=== PATIENT | female | born 1935 | race Caucasian/White ===

== ENCOUNTER 2018-05-31 23:56 | Inpatient (IN) | payer MEDICARE ==
[~2018-05-31] VITALS: Ht 160 cm; Wt 63.9 kg
[~2018-05-31 23:56] MED LIST: AMLO5TAB7 PO; ATEN25TA PO; BACL20TA PO; FENO145T32 PO; LEVO137T3 PO; LISI-170 PO; LOVA10TA PO; PRED5POW3 PO
[2018-06-01 00:32] LABS: BASOPHILS # (AUTO) 0.02 x10^3/uL (0-0.1); BASOPHILS % (AUTO) 0 % (0-1); EOSINOPHILS # (AUTO) 0.12 x10^3/uL (0-0.4); EOSINOPHILS % (AUTO) 1 % (1-7); LYMPHOCYTES # (AUTO) 1.72 x10^3/uL (1-3.4); LYMPHOCYTES % (AUTO) 18 % (22-44); MD NO; MEAN CORPUSCULAR HEMOGLOBIN 30.5 pg (27.0-34.8); MEAN CORPUSCULAR HGB CONC 33.7 g/dL (32.4-35.8); MEAN CORPUSCULAR VOLUME 90.3 fL (80-100); MEAN PLATELET VOLUME 8.1 fL (7.4-10.4); MONOCYTES # (AUTO) 0.59 x10^3/uL (0.2-0.8); MONOCYTES % (AUTO) 6 % (2-9); NEUTROPHILS # (AUTO) 6.97 x10^3/uL (1.8-6.8); NEUTROPHILS % (AUTO) 74 % (42-75); PLATELET COUNT 311 x10^3/uL (130-400); RED BLOOD COUNT 4.72 x10^6/uL (3.82-5.3)
[2018-06-01 00:45] LABS: ALANINE AMINOTRANSFERASE 23 U/L (12-78); ALBUMIN 3.4 g/dL (3.4-5.0); ANION GAP 10 mmol/L (5-15); CALCIUM 8.6 mg/dL (8.5-10.1); CHLORIDE 103 mmol/L (98-107); CREATININE 1.43 mg/dL (0.55-1.02)
[2018-06-01 00:49] LABS: ALKALINE PHOSPHATASE 130 U/L (45-117); BILIRUBIN,TOTAL 0.2 mg/dL (0.2-1.0); TOTAL PROTEIN 7.2 g/dL (6.4-8.2); TROPONIN I 0.044 ng/mL (0.000-0.045)
[2018-06-01 01:21] LABS: CULTURE INDICATED? YES; MICROSCOPIC INDICATED
[2018-06-01] MEDS: CEFTRIAXONE 1,000 MG in SODIUM CHLORIDE 0.9% 50 ML IVPB ONE ×2 (01:43→02:00)
[2018-06-01] MEDS ORDERED: ACYCLOVIR IV SCH (02:00)
[2018-06-01] MEDS ORDERED: AMPICILLIN 2 GM in SODIUM CHLORIDE 0.9% 100 ML IV SCH (02:00)
[2018-06-01] MEDS ORDERED: VANCOMYCIN PER PHARMACY MC PRN (02:00)
[2018-06-01] MEDS ORDERED: VANCOMYCIN 1,300 MG in SODIUM CHLORIDE 0.9% 250 ML IV ONE (02:00)
[2018-06-01] MEDS ORDERED: VANCOMYCIN 1,400 MG in SODIUM CHLORIDE 0.9% 250 ML IV ONE (02:00)
[2018-06-01] MEDS ORDERED: SODIUM CHLORIDE 0.9% IV SCH (02:00)
[2018-06-01 02:38] LABS: GLUCOSE, CSF 71 mg/dL (40-80); TOTAL PROTEIN,CSF 37 mg/dL (15-45)
[2018-06-01 04:00] VITALS: BP 153/71
[2018-06-01] MEDS: SODIUM CHLORIDE 0.9% 1,000 ML IV SCH ×2 (05:40→22:53)
[2018-06-01] MEDS ORDERED: ACETAMINOPHEN 500 MG TABLET PO PRN (06:00)
[2018-06-01] MEDS ORDERED: DOCUSATE 100 MG CAPSULE PO PRN (06:00)
[2018-06-01] MEDS ORDERED: ONDANSETRON ODT 4 MG PO PRN (06:00)
[2018-06-01] MEDS ORDERED: hydrALAzine 20 MG/ML, 1ML IVPush PRN (06:00)
[2018-06-01] MEDS ORDERED: POLYETHYLENE GLYCOL 17 GM PACKET PO PRN (06:00)
[2018-06-01] MEDS ORDERED: ONDANSETRON 2MG/ML, 2ML IVPush PRN (06:00)
[2018-06-01] MEDS: BUTALB/APAP/CAFFEINE 50MG/325MG/40MG PO PRN ×3 (06:07→20:55)
[2018-06-01 08:13] VITALS: BP 116/57
[2018-06-01] MEDS: LEVOTHYROXINE 137 MCG TABLET PO SCH (09:00)
[2018-06-01] MEDS: FENOFIBRATE 145 MG TABLET PO SCH (10:30)
[2018-06-01] MEDS: AMLODIPINE 5 MG TABLET PO SCH (10:30)
[2018-06-01] MEDS: LEVETIRACETAM 500 MG in SODIUM CHLORIDE 0.9% 100 ML IV SCH ×2 (10:30→22:54)
[2018-06-01] MEDS ORDERED: GADOBUTROL 7.5 MMOL/7.5 ML PFS ONE (12:03)
[2018-06-01 12:28] VITALS: BP 122/53
[2018-06-01] MEDS: ACYCLOVIR IV SCH (15:00)
[2018-06-01] MEDS: SODIUM CHLORIDE 0.9% IV SCH (15:00)
[2018-06-01 19:06] VITALS: BP 104/58
[2018-06-01] MEDS: LOVASTATIN 10 MG TABLET PO SCH (20:55)
[2018-06-02 00:47] VITALS: BP 111/51
[2018-06-02] MEDS ORDERED: CEFTRIAXONE PMX 1GM/50ML 50 ML IV SCH (02:00)
[2018-06-02] MEDS: SODIUM CHLORIDE 0.9% IV SCH (03:30)
[2018-06-02] MEDS: ACYCLOVIR IV SCH (03:30)
[2018-06-02] MEDS: ASPIRIN 81 MG TABLET EC PO SCH (05:31)
[2018-06-02 05:55] LABS: BASOPHILS # (AUTO) 0.04 x10^3/uL (0-0.1); BASOPHILS % (AUTO) 0 % (0-1); EOSINOPHILS # (AUTO) 0.09 x10^3/uL (0-0.4); EOSINOPHILS % (AUTO) 1 % (1-7); LYMPHOCYTES # (AUTO) 2.62 x10^3/uL (1-3.4); LYMPHOCYTES % (AUTO) 32 % (22-44); MD NO; MEAN CORPUSCULAR HEMOGLOBIN 30.5 pg (27.0-34.8); MEAN CORPUSCULAR HGB CONC 33.6 g/dL (32.4-35.8); MEAN CORPUSCULAR VOLUME 90.9 fL (80-100); MEAN PLATELET VOLUME 8.6 fL (7.4-10.4); MONOCYTES # (AUTO) 0.61 x10^3/uL (0.2-0.8); MONOCYTES % (AUTO) 8 % (2-9); NEUTROPHILS # (AUTO) 4.81 x10^3/uL (1.8-6.8); NEUTROPHILS % (AUTO) 59 % (42-75); PLATELET COUNT 255 x10^3/uL (130-400); RED BLOOD COUNT 4.36 x10^6/uL (3.82-5.3); RED CELL DISTRIBUTION WIDTH 13.2 % (9.6-15.2)
[2018-06-02 06:01] LABS: ALBUMIN 2.9 g/dL (3.4-5.0); ANION GAP 8 mmol/L (5-15); CALCIUM 8.4 mg/dL (8.5-10.1); CHLORIDE 110 mmol/L (98-107)
[2018-06-02 06:05] LABS: ALANINE AMINOTRANSFERASE 18 U/L (12-78); ALKALINE PHOSPHATASE 106 U/L (45-117); BILIRUBIN,TOTAL 0.4 mg/dL (0.2-1.0); CREATININE 0.92 mg/dL (0.55-1.02); TOTAL PROTEIN 6.3 g/dL (6.4-8.2)
[2018-06-02 07:35] VITALS: BP 141/60
[2018-06-02] MEDS: FENOFIBRATE 145 MG TABLET PO SCH (09:49)
[2018-06-02] MEDS: LEVOTHYROXINE 137 MCG TABLET PO SCH (09:50)
[2018-06-02] MEDS: AMLODIPINE 5 MG TABLET PO SCH (09:50)
[2018-06-02] MEDS: LINEZOLID 600 MG TABLET PO SCH ×2 (10:51→20:44)
[2018-06-02] MEDS: LEVETIRACETAM 500 MG TABLET PO SCH ×2 (10:51→20:44)
[2018-06-02 11:26] LABS: CHOL/HDL RATIO 4.2; LDL/HDL RATIO 2.3 (0.5-3.0)
[2018-06-02 12:45] VITALS: BP 138/56
[2018-06-02 18:39] VITALS: BP 120/70
[2018-06-02] MEDS: LOVASTATIN 10 MG TABLET PO SCH (20:44)
[2018-06-03 01:53] VITALS: BP 172/80
[2018-06-03 02:17] VITALS: BP 159/73
[2018-06-03] MEDS: ASPIRIN 81 MG TABLET EC PO SCH (05:53)
[2018-06-03 07:43] VITALS: BP 171/72
[2018-06-03] MEDS: AMLODIPINE 5 MG TABLET PO SCH (08:49)
[2018-06-03] MEDS: LEVETIRACETAM 500 MG TABLET PO SCH (08:49)
[2018-06-03] MEDS: LINEZOLID 600 MG TABLET PO SCH (08:50)
[2018-06-03] MEDS: FENOFIBRATE 145 MG TABLET PO SCH (08:50)
[2018-06-03] MEDS: LEVOTHYROXINE 137 MCG TABLET PO SCH (08:50)
[2018-06-03] MEDS ORDERED: LISINOPRIL 20 MG TABLET PO SCH (09:00)
[2018-06-03] MEDS ORDERED: LEVE500T53 PO (10:59)
[2018-06-03] MEDS ORDERED: ASPI-621 PO (10:59)
[2018-06-03] MEDS ORDERED: AMOX-291 PO (10:59)
== END 2018-06-03 14:00 | disposition home health service (06) | DRG 100 ==
LOC: ED 06-01 00:09 → EDIP 06-01 02:30 → 4WST 06-01 03:38
PROVIDERS: ADMIT Hospitalist; ATTEND Hospitalist
PROC: 0T9B70Z Drainage of Bladder with Drainage Device, Via Natural or Artificial Opening (ICD-10-PCS; principal; 2018-06-01)
PROC: 009U3ZX Drainage of Spinal Canal, Percutaneous Approach, Diagnostic (ICD-10-PCS; 2018-06-01)
DX: G40.209 Localization-related (focal) (partial) symptomatic epilepsy and epileptic syndromes with complex partial seizures, not intractable, without status epilepticus (principal); I63.9 Cerebral infarction, unspecified; N17.9 Acute kidney failure, unspecified; N39.0 Urinary tract infection, site not specified; I10 Essential (primary) hypertension; E03.9 Hypothyroidism, unspecified; B95.2 Enterococcus as the cause of diseases classified elsewhere; E78.5 Hyperlipidemia, unspecified; I25.10 Atherosclerotic heart disease of native coronary artery without angina pectoris; Z96.649 Presence of unspecified artificial hip joint; I34.0 Nonrheumatic mitral (valve) insufficiency; I35.0 Nonrheumatic aortic (valve) stenosis; I49.3 Ventricular premature depolarization; R09.02 Hypoxemia; Z79.82 Long term (current) use of aspirin
CPT/HCPCS: 36415; 70450; 70553; 71045; 72125; 80053; 80061; 80307; 81001; 82140; 82945; 83735; 84100; 84157; 84443; 84484; 85025; 86592; 87040; 87070; 87077; 87086; 87186; 87205; 87252; 89051; 93005; 93306; 95819; 96365; 96367; 96368; A9585; G0378; J0133; J0290; J0696; J1953; J3370; 92523-GN; J7030; J7050

== ENCOUNTER → 2018-08-09 | Outpatient (CLI) | payer MEDICARE ==
[~2018-08-09] MED LIST changes: +AMLO-150 PO; -AMLO5TAB7 PO; +AMOX-291 PO; +ASPI81TA45 PO; +LEVE500T53 PO
== END | disposition home or self-care (01) ==
LOC: RAD 12:25
PROVIDERS: ATTEND Otolaryngology Facial Plastic Surgery
DX: R13.10 Dysphagia, unspecified (principal)
CPT/HCPCS: 74220

== ENCOUNTER → 2018-09-11 | Outpatient (CLI) | payer MEDICARE | END | disposition home or self-care (01) | LOC: CVU 12:17 | PROVIDERS: ATTEND Internal Medicine Cardiovascular Disease | DX: I73.9 Peripheral vascular disease, unspecified (principal); M79.606 Pain in leg, unspecified; E78.5 Hyperlipidemia, unspecified; I10 Essential (primary) hypertension; Z87.891 Personal history of nicotine dependence | CPT/HCPCS: 93922; 93925 ==

== ENCOUNTER 2019-02-19 09:14 | Day surgery (SDC) | payer MEDICARE ==
[~2019-02-19] VITALS: Ht 160 cm; Wt 67.2 kg
[2019-02-19 10:17] VITALS: BP 177/67
== END 2019-02-19 14:30 | disposition home or self-care (01) ==
LOC: OUT 09:14
PROVIDERS: ATTEND Surgery
DX: I70.213 Atherosclerosis of native arteries of extremities with intermittent claudication, bilateral legs (principal); I70.0 Atherosclerosis of aorta; I10 Essential (primary) hypertension; I25.10 Atherosclerotic heart disease of native coronary artery without angina pectoris; E78.5 Hyperlipidemia, unspecified; G40.909 Epilepsy, unspecified, not intractable, without status epilepticus; Z79.02 Long term (current) use of antithrombotics/antiplatelets; Z79.899 Other long term (current) drug therapy; Z88.8 Allergy status to other drugs, medicaments and biological substances; Z82.49 Family history of ischemic heart disease and other diseases of the circulatory system
CPT/HCPCS: 36415; 37224; 75625; 75716; 80048; 85025; 99156; 99157; C1725; C1751; C1760; C1769; C1894; J0690; J1644; J2250; J3010; J7030; Q9966; J2720; J2310

== ENCOUNTER 2019-07-26 13:56 | Inpatient (IN) | payer MEDICARE ==
[~2019-07-26] VITALS: Ht 160 cm; Wt 68.5 kg
[~2019-07-26 13:56] MED LIST changes: +ASPI-496 PO; +ATEN50TA41 PO; +CALCIUM PO; +CHOL400T10 PO; +LEVE500T8 PO; +MULT-658 PO
--- NOTE | 2019-07-26 14:07 | NUR ---
BIB EMS FOR SYNCOPAL EPISODE THIS AM LASTING A FEW MIN PER SON. STATES SHE TOOK A SHOWER AND SHE SAT ON THE TOILET TO DRY HERSELF OFF AND THEN HAD A SYNCOPAL EPISODE. PT HAS HAD C/O CONGESTION, COUGH, WEAKNESS X 1 WK. BS 102. BP 50/30 AFTER IVF WAS 110/56, HR 60, 98% RA. PT DROWSY IN ROOM. HAD HER MORNING MEDS THIS AM. EKG COMPLETED. PT ALSO HAS C/O NECK PAIN. PT PLACED IN NECK COLLAR. WARM BLANKET PROVIDED. FAMILY AT BEDSIDE.
--- NOTE | 2019-07-26 14:13 | NUR ---
PT NEURO INTACT. IS ON PLAVIX. PT DOES NOT KNOW WHY.
--- NOTE | 2019-07-26 14:20 | NUR ---
BLADDER SCAN [id number]
[2019-07-26] MEDS ORDERED: SODIUM CHLORIDE FLUSH 10ML SYR IVF ONE (14:30)
--- NOTE | 2019-07-26 14:32 | NUR ---
STRAIGHT CATH PERFORMED AFTER 1 UNSUCCESSFUL ATTEMPT, ASSIST BY PIPPA TEIXEIRA RN. SPECIMEN WALKED TO LAB.
[2019-07-26 14:51] LABS: BASOPHILS # (AUTO) 0.05 x10^3/uL (0-0.1); BASOPHILS % (AUTO) 0 % (0-1); EOSINOPHILS # (AUTO) 0.14 x10^3/uL (0-0.4); EOSINOPHILS % (AUTO) 1 % (1-7); LYMPHOCYTES # (AUTO) 1.53 x10^3/uL (1-3.4); LYMPHOCYTES % (AUTO) 13 % (22-44); MD NO; MEAN CORPUSCULAR HEMOGLOBIN 30.1 pg (27.0-34.8); MEAN CORPUSCULAR VOLUME 91.1 fL (80-100); MEAN PLATELET VOLUME 7.9 fL (7.4-10.4); MONOCYTES # (AUTO) 1.23 x10^3/uL (0.2-0.8); MONOCYTES % (AUTO) 10 % (2-9); NEUTROPHILS # (AUTO) 9.24 x10^3/uL (1.8-6.8); NEUTROPHILS % (AUTO) 76 % (42-75); PLATELET COUNT 317 x10^3/uL (130-400); RED BLOOD COUNT 4.16 x10^6/uL (3.82-5.3); RED CELL DISTRIBUTION WIDTH 12.8 % (9.6-15.2)
[2019-07-26 15:02] LABS: ALANINE AMINOTRANSFERASE 21 U/L (12-78); ALBUMIN 2.7 g/dL (3.4-5.0); ANION GAP 9 mmol/L (5-15); CALCIUM 7.9 mg/dL (8.5-10.1); CHLORIDE 94 mmol/L (98-107); CREATININE 1.77 mg/dL (0.55-1.02)
[2019-07-26 15:06] LABS: ALKALINE PHOSPHATASE 70 U/L (45-117); BILIRUBIN,TOTAL 0.6 mg/dL (0.2-1.0); FREE T4 (FREE THYROXINE) 1.75 ng/dL (0.76-1.46); TOTAL PROTEIN 6.2 g/dL (6.4-8.2); TROPONIN I < 0.015 ng/mL (0.000-0.045)
[2019-07-26 15:47] LABS: MICROSCOPIC NOT IND
--- NOTE | 2019-07-26 15:52 | NUR ---
PT TO CT
[2019-07-26 15:59] LABS: CULTURE INDICATED? NO
--- NOTE | 2019-07-26 16:32 | NUR ---
PT SLEEPING IN GURNEY, EQUAL CHEST RISE AND FALL. AWAITING RECHECK BY . PT ON MONITOR, CALL LIGHT WITHIN REACH
--- NOTE | 2019-07-26 17:30 | NUR ---
PER NO IVF. PT OK FOR PO
--- NOTE | 2019-07-26 18:29 | NUR ---
PT RESTING IN [facility], AWAITNG BED ASSIGNMENT. CALL LIGHT DEMIAN METCALF, PT ON MONITOR.
[2019-07-26] MEDS ORDERED: ACETAMINOPHEN 325 MG TABLET PO PRN (18:30)
[2019-07-26] MEDS ORDERED: POLYETHYLENE GLYCOL 17 GM PACKET PO PRN (18:30)
[2019-07-26] MEDS ORDERED: SODIUM CHLORIDE FLUSH 10ML SYR IVF PRN (18:30)
[2019-07-26] MEDS ORDERED: BISACODYL 10 MG SUPP PR PRN (18:30)
[2019-07-26] MEDS ORDERED: ONDANSETRON ODT 4 MG PO PRN (18:30)
--- NOTE | 2019-07-26 18:50 | NUR ---
REPORT FROM BRITTANY DUCKWORTH
[2019-07-26] MEDS ORDERED: HEPARIN 5,000 UNITS/ML, 1ML ONE (19:04)
[2019-07-26] MEDS: SODIUM CHLORIDE 0.9% 1,000 ML IV SCH (19:12)
[2019-07-26] MEDS: HEPARIN 5,000 UNITS/ML, 1ML SQ SCH (19:12)
--- NOTE | 2019-07-26 19:14 | NUR ---
PT MEDICATED PER MICHELLE SALCEDO NADN. SON AT BEDSIDE.
[2019-07-26 20:14] VITALS: BP 170/67
[2019-07-26 20:16] VITALS: BP 167/63
[2019-07-26 20:17] VITALS: BP 138/69
[2019-07-26] MEDS: LOVASTATIN 10 MG TABLET PO SCH (21:06)
[2019-07-26] MEDS: LEVETIRACETAM 500 MG TABLET PO SCH (21:06)
[2019-07-26] MEDS ORDERED: LISINOPRIL 10 MG TABLET PO SCH (22:30)
[2019-07-27 01:11] VITALS: BP 153/71
[2019-07-27] MEDS: HEPARIN 5,000 UNITS/ML, 1ML SQ SCH ×3 (03:09→18:10)
[2019-07-27] MEDS: SODIUM CHLORIDE 0.9% 1,000 ML IV SCH ×2 (05:13→18:11)
[2019-07-27] MEDS: LEVOTHYROXINE 137 MCG TABLET PO SCH (05:14)
[2019-07-27 05:58] LABS: BASOPHILS # (AUTO) 0.03 x10^3/uL (0-0.1); BASOPHILS % (AUTO) 0 % (0-1); EOSINOPHILS # (AUTO) 0.22 x10^3/uL (0-0.4); EOSINOPHILS % (AUTO) 2 % (1-7); LYMPHOCYTES # (AUTO) 1.62 x10^3/uL (1-3.4); LYMPHOCYTES % (AUTO) 14 % (22-44); MD NO; MEAN CORPUSCULAR HEMOGLOBIN 30.2 pg (27.0-34.8); MEAN CORPUSCULAR HGB CONC 32.9 g/dL (32.4-35.8); MEAN CORPUSCULAR VOLUME 91.8 fL (80-100); MONOCYTES # (AUTO) 1.02 x10^3/uL (0.2-0.8); MONOCYTES % (AUTO) 9 % (2-9); NEUTROPHILS # (AUTO) 8.92 x10^3/uL (1.8-6.8); NEUTROPHILS % (AUTO) 76 % (42-75); PLATELET COUNT 330 x10^3/uL (130-400); RED BLOOD COUNT 4.58 x10^6/uL (3.82-5.3); RED CELL DISTRIBUTION WIDTH 13.2 % (9.6-15.2)
[2019-07-27] MEDS ORDERED: CARVEDILOL 25 MG TABLET PO SCH (06:00)
[2019-07-27 06:10] LABS: ANION GAP 9 mmol/L (5-15); CALCIUM 9.1 mg/dL (8.5-10.1); CHLORIDE 95 mmol/L (98-107)
[2019-07-27 06:16] LABS: CREATININE 1.01 mg/dL (0.55-1.02); TROPONIN I < 0.015 ng/mL (0.000-0.045)
[2019-07-27 06:35] VITALS: BP 98/52
[2019-07-27] MEDS ORDERED: LISINOPRIL 20 MG TABLET ONE (08:01)
[2019-07-27] MEDS ORDERED: LISINOPRIL 20 MG TABLET PO SCH (09:00)
[2019-07-27] MEDS: CHOLECALCIFEROL 400 UNITS TABLET PO SCH (09:33)
[2019-07-27] MEDS: MULTIVITAMIN 1 TABLET PO SCH (09:34)
[2019-07-27] MEDS: LEVETIRACETAM 500 MG TABLET PO SCH ×2 (09:34→20:37)
[2019-07-27] MEDS: FENOFIBRATE 145 MG TABLET PO SCH (09:34)
[2019-07-27] MEDS: SENNA/DOCUSATE TABLET PO SCH (09:36)
[2019-07-27 12:15] LABS: TROPONIN I < 0.015 ng/mL (0.000-0.045)
[2019-07-27 13:27] VITALS: BP 95/53
[2019-07-27] MEDS: AZITHROMYCIN 250 MG TABLET PO SCH (13:36)
[2019-07-27] MEDS: BENZONATATE 100 MG CAPSULE PO SCH ×2 (18:10→20:37)
[2019-07-27] MEDS: CARVEDILOL 6.25 MG TABLET PO SCH (18:10)
[2019-07-27 20:15] VITALS: BP 157/80
[2019-07-27] MEDS: LOVASTATIN 10 MG TABLET PO SCH (20:37)
[2019-07-28 01:52] VITALS: BP 137/71
[2019-07-28] MEDS: SODIUM CHLORIDE 0.9% 1,000 ML IV SCH (02:22)
[2019-07-28] MEDS: HEPARIN 5,000 UNITS/ML, 1ML SQ SCH ×2 (02:22→09:06)
[2019-07-28] MEDS: CARVEDILOL 6.25 MG TABLET PO SCH (05:40)
[2019-07-28] MEDS: LEVOTHYROXINE 137 MCG TABLET PO SCH (05:40)
[2019-07-28 05:44] LABS: ANION GAP 7 mmol/L (5-15); CALCIUM 8.2 mg/dL (8.5-10.1); CHLORIDE 98 mmol/L (98-107)
[2019-07-28] MEDS ORDERED: POTASSIUM CHLORIDE 20 MEQ TAB.ER.PRT PO ONE (06:30)
[2019-07-28] MEDS: BENZONATATE 100 MG CAPSULE PO SCH (08:35)
[2019-07-28] MEDS: AZITHROMYCIN 250 MG TABLET PO SCH (08:35)
[2019-07-28] MEDS: CHOLECALCIFEROL 400 UNITS TABLET PO SCH (08:36)
[2019-07-28] MEDS: SENNA/DOCUSATE TABLET PO SCH (08:36)
[2019-07-28] MEDS: MULTIVITAMIN 1 TABLET PO SCH (08:36)
[2019-07-28] MEDS: FENOFIBRATE 145 MG TABLET PO SCH (08:36)
[2019-07-28] MEDS: LEVETIRACETAM 500 MG TABLET PO SCH (08:36)
[2019-07-28] MEDS ORDERED: LIDODERM 5% PATCH TD ONE (09:00)
[2019-07-28 09:13] VITALS: BP 99/54
[2019-07-28] MEDS ORDERED: LIDODERM REMOVE PATCH NOTE XX ONE (21:00)
== END 2019-07-28 10:17 | disposition home or self-care (01) | DRG 682 ==
LOC: ED 17:06 → EDIP 17:07 → ED 17:10 → 4EST 19:47 → DCLOUNGE 07-28 09:59
PROVIDERS: ADMIT Hospitalist; ATTEND Hospitalist
PROC: 0T9B70Z Drainage of Bladder with Drainage Device, Via Natural or Artificial Opening (ICD-10-PCS; principal; 2019-07-26)
DX: N17.0 Acute kidney failure with tubular necrosis (principal); E43 Unspecified severe protein-calorie malnutrition; I50.30 Unspecified diastolic (congestive) heart failure; E87.1 Hypo-osmolality and hyponatremia; I35.0 Nonrheumatic aortic (valve) stenosis; R55 Syncope and collapse; I11.0 Hypertensive heart disease with heart failure; I10 Essential (primary) hypertension; E03.9 Hypothyroidism, unspecified; E78.5 Hyperlipidemia, unspecified; E86.0 Dehydration; G40.909 Epilepsy, unspecified, not intractable, without status epilepticus; Z96.642 Presence of left artificial hip joint; I25.10 Atherosclerotic heart disease of native coronary artery without angina pectoris; J40 Bronchitis, not specified as acute or chronic; Z98.61 Coronary angioplasty status; Z74.01 Bed confinement status; Z86.73 Personal history of transient ischemic attack (TIA), and cerebral infarction without residual deficits; Z90.710 Acquired absence of both cervix and uterus; Z68.26 Body mass index [BMI] 26.0-26.9, adult; Z80.9 Family history of malignant neoplasm, unspecified
CPT/HCPCS: 36415; 70450; 71045; 80048; 80053; 80177; 81003; 83735; 84439; 84443; 84484; 85025; 93005; 93306; 93880; 99285; G0378; J1644; J7030

== ENCOUNTER → 2020-05-01 | Outpatient (CLI) | payer MEDICARE ==
[~2020-05-01] MED LIST changes: +AMIO200T42 PO; +ATOR-2 PO; +CARV3.1212 PO; +LISI5TAB7 PO; +SPIR25TA PO; +TICA90TA PO
== END | disposition home or self-care (01) ==
LOC: CFH 11:59
PROVIDERS: ATTEND Family Medicine
DX: N64.4 Mastodynia (principal)
CPT/HCPCS: 77066; G0279

== ENCOUNTER 2021-01-10 11:58 | Emergency (ER) | payer MEDICARE ==
[~2021-01-10] VITALS: Ht 160 cm; Wt 60.0 kg
--- NOTE | 2021-01-10 12:24 | NUR ---
INITAL CONTACT: PT W/ C/O GLF THIS AM GROSS DEFORMITY L WRIST GOOD DISTAL SENSATION. PT POSTIONED TO COMFORT IN BED. ATTACHED TO MONITORS. MICHELLE. MAYKEL. SON AT BEDSIDE. AWAITNG ORDERS
--- NOTE | 2021-01-10 12:50 | NUR ---
DR. COTTRELL TO [facility] FOR EVALUTION. Stas BRAR.
[2021-01-10] MEDS ORDERED: MORPHINE SULFATE 4 MG/ML, 1ML ONE (12:54)
[2021-01-10] MEDS ORDERED: MORPHINE SULFATE 4 MG/ML, 1ML IVPush PRN (13:00)
[2021-01-10] MEDS ORDERED: PROPOFOL 10 MG/ML, 20ML ONE (13:40)
[2021-01-10] MEDS ORDERED: KETAMINE 10 MG/ML, 20ML ONE (13:40)
[2021-01-10] MEDS ORDERED: PROPOFOL 10 MG/ML, 20ML IVPush ONE (14:30)
[2021-01-10] MEDS ORDERED: KETAMINE 10 MG/ML, 20ML IV ONE (14:30)
--- NOTE | 2021-01-10 14:30 | NUR ---
PT POST PROCERDURAL SEDATION. VSS. NADN. PTS RING GIVEN TO SON. DR. COTTRELL RE-EVALUATED PATION. PT [id number]
[2021-01-10 16:00] VITALS: BP 119/58
--- NOTE | 2021-01-10 16:08 | NUR ---
TASK RN: PT REC'VD DISCHARGE EDUCATION AND INSTRUCTIONS. PT HAD NO FURTHER QUESTIONS. PT PLACED IN WHEELCHAIR TO DC AREA. CAST AND SPLINT IN PLACE. PT SON TO DRIVE HER HOME.
== END 2021-01-10 16:10 | disposition home or self-care (01) ==
LOC: ED 16:00
DX: S52.502A Unspecified fracture of the lower end of left radius, initial encounter for closed fracture (principal); S52.222A Displaced transverse fracture of shaft of left ulna, initial encounter for closed fracture; I10 Essential (primary) hypertension; E03.9 Hypothyroidism, unspecified; I25.10 Atherosclerotic heart disease of native coronary artery without angina pectoris; Z86.73 Personal history of transient ischemic attack (TIA), and cerebral infarction without residual deficits; Z95.0 Presence of cardiac pacemaker; Z98.61 Coronary angioplasty status; W18.30XA Fall on same level, unspecified, initial encounter; Y93.89 Activity, other specified; Y92.009 Unspecified place in unspecified non-institutional (private) residence as the place of occurrence of the external cause; Y99.8 Other external cause status
CPT/HCPCS: 25605; 73100; 73110; 96374; 99152; 99285; J2270; J2704; 96372

== ENCOUNTER → 2021-01-19 | Outpatient (CLI) | payer MEDICARE | END | disposition home or self-care (01) | LOC: CFH 14:30 | PROVIDERS: ATTEND Internal Medicine Cardiovascular Disease | DX: I08.8 Other rheumatic multiple valve diseases (principal); I25.5 Ischemic cardiomyopathy; I25.10 Atherosclerotic heart disease of native coronary artery without angina pectoris | CPT/HCPCS: C8929; Q9957 ==